=== PATIENT | male | born 1950 | race African-American/Black ===

== ENCOUNTER 2017-07-09 21:15 | Emergency (ER) | payer MEDICARE, MEDICAID ==
[~2017-07-09] VITALS: Ht 180.3 cm; Wt 68.0 kg
[2017-07-09] MEDS ORDERED: SODIUM CHLORIDE 0.9% 1,000 ML IV ONE (22:38)
[2017-07-09] MEDS ORDERED: MECLIZINE 25MG TABLET PO ONE (22:45)
[2017-07-09 23:12] LABS: BASOPHILS % 1.2 % (0.0-2.0); EOSINOPHILS % 4.2 % (0.0-5.0); HEMATOCRIT. 40.5 % (42.0-52.0); HEMOGLOBIN. 13.7 g/dL (14.0-18.0); LYMPHOCYTES % 25.3 % (20.0-50.0); MEAN CORPUSCULAR HEMOGLOBIN 28.5 pg (28.0-32.0); MEAN CORPUSCULAR VOLUME 84.2 fL (80.0-94.0); MEAN PLATELET VOLUME 8.7 fl (7.4-10.4); MONOCYTES % 9.7 % (2.0-8.0); NEUTROPHILS % 59.6 % (40.0-76.0); PLATELET 135 x1000/uL (130-400); RED BLOOD CELL COUNT 4.81 mill/uL (4.7-6.1); RED CELL DISTRIBUTION WIDTH 15.4 % (11.6-14.6)
[2017-07-09 23:14] LABS: CHLORIDE 103 mEq/L (98-107)
[2017-07-09 23:17] LABS: AMMONIA 31 uMol/L (<32); CARBON DIOXIDE 22 mEq/L (21-32); ETHANOL BLOOD 201 mg/dL
[2017-07-09 23:19] LABS: D-DIMER 1.9 mg/L FEU (<0.50); PROTHROMBIN TIME 10.2 sec (9.4-11.6)
[2017-07-09 23:24] LABS: CREATINE KINASE 794 IU/L (39-308); TROPONIN I < 0.02 ng/mL (0.00-0.04)
[2017-07-09 23:41] LABS: *AMPHETAMINES SCREEN URINE NEGATIVE (NEGATIVE); *BARBITURATES SCREEN URINE NEGATIVE (NEGATIVE); *BENZODIAZEPINES SCREEN URINE NEGATIVE (NEGATIVE); *COCAINE SCREEN URINE NEGATIVE (NEGATIVE); CANNABINOID URINE SCREEN NEGATIVE (NEGATIVE); METHADONE URINE SCREEN NEGATIVE (NEGATIVE); OPIATES URINE SCREEN NEGATIVE (NEGATIVE); PHENCYCLIDINE URINE SCREEN NEGATIVE (NEGATIVE)
[2017-07-10 03:34] VITALS: BP 104/64
[2017-07-10] MEDS ORDERED: CLINDAMYCIN 600 MG in DEXTROSE 5% WATER 50 ML IV SCH (03:57)
== END 2017-07-10 04:30 | disposition home or self-care (01) ==
LOC: ER 22:02
DX: F10.129 Alcohol abuse with intoxication, unspecified (principal); K02.9 Dental caries, unspecified; J32.4 Chronic pansinusitis; E86.0 Dehydration; F12.10 Cannabis abuse, uncomplicated; M19.90 Unspecified osteoarthritis, unspecified site; I11.0 Hypertensive heart disease with heart failure; I48.91 Unspecified atrial fibrillation; F17.200 Nicotine dependence, unspecified, uncomplicated
CPT/HCPCS: 36415; 70450; 70486; 71010; 72125; 80053; 80305; 82140; 82550; 83605; 83880; 84443; 84484; 85025; 85379; 85610; 86850; 86900; 86901; 96361; 96365; 99285; G0482; J3490; J7030; J7060; J8597